=== PATIENT | female | born 1950 | race Caucasian/White ===

== ENCOUNTER 2018-09-18 14:15 | Emergency (ER) | payer MEDICARE, SELFPAY ==
[2018-09-18 14:27] VITALS: BP 166/84; PULSE 62; RESP 15; TEMP 36.2; O2SAT 98; BMI 27.9
--- NOTE | 2018-09-18 14:27 | DI.RAD.S_ITS ---
PROCEDURE: XR CHEST 1V INDICATIONS: chest pain TECHNIQUE: One view of the chest was acquired. COMPARISON: None. FINDINGS: Surgical changes and devices: Suture anchors noted in the right humeral head.. Lungs and pleura: No pleural effusions or pneumothorax. Lungs are clear. Mediastinum: Mediastinal contours appear normal. Heart size is normal. Bones and chest wall: No suspicious bony lesions. Overlying soft tissues appear unremarkable. IMPRESSION: No acute cardiopulmonary disease process. Dictated by: Bessy Marinelli MD, PhD on 09/18/2018 at 14:58 Approved by: Bessy Marinelli MD, PhD on 09/18/2018 at 14:58
[2018-09-18 14:57] LABS: Add Manual Diff / Slide Review NO; Basophils Absolute Auto 100 /uL (0-100); Basophils Percent Auto 0.9 % (0-2); Eosinophils Absolute Auto 100 /uL (0-450); Eosinophils Percent Auto 1.5 % (2-4); Hematocrit 43.7 % (36-46); Hemoglobin 14.8 g/dL (12.0-16.0); Lymphocytes Absolute Auto 2800 /uL (1100-4500); Lymphocytes Percent Auto 37.3 % (25-40); Mean Corpuscular HGB Conc 33.9 % (30-36); Mean Corpuscular Hemoglobin 30.4 PG (26-34); Mean Corpuscular Volume 89.8 fL (80-100); Monocytes Absolute Auto 500 /uL (0-900); Monocytes Percent Auto 6.8 % (3-14); Neutrophils Absolute Auto 3900 /uL (1500-7000); Neutrophils Percent Auto 53.5 % (50-75); Platelet Count 265 X10^3/uL (150-400); Red Blood Cell Count 4.87 X10^6/uL (4.0-5.2); Red Cell Distribution Width 14.2 % (11.6-14.8); White Blood Cell Count 7.4 X10^3/uL (4.5-11.0)
[2018-09-18 15:00] VITALS: BP 138/76; PULSE 88; RESP 27
[2018-09-18 15:01] LABS: INR 0.8 (0.9-1.3); Prothrombin Time 9.7 SECONDS (10.1-12.7)
[2018-09-18 15:02] LABS: PTT Partial Thromboplastin Tim 28 SECONDS (26.4-36.2)
[2018-09-18 15:05] LABS: Alanine Aminotransferase 75 IU/L (9-52); Albumin 4.8 g/dL (3.5-5.0); Albumin Globulin Ratio 1.7 (1.0-2.8); Alkaline Phosphatase 90 U/L (38-126); Aspartate Aminotransferase 56 IU/L (14-36); Bilirubin Total 1.1 mg/dL (0.2-1.3); Blood Urea Nitrogen 12 mg/dL (7-17); Calcium 9.6 mg/dL (8.4-10.2); Carbon Dioxide 27 mmol/L (22-32); Chloride 103 mmol/L (98-107); Creatine Kinase 67 U/L (30-135); Estimated Glomerular Filt Rate > 60.0 mL/min (>60); Globulin 2.9 g/dL (1.7-4.1); Glucose 91 mg/dL (80-110); HEMOLYSIS < 15 (0-50); Lipase 71 U/L (23-300); Potassium 3.9 mmol/L (3.4-5.1); Sodium 140 mmol/L (137-145); Total Protein 7.7 g/dL (6.3-8.2)
[2018-09-18 15:16] LABS: Troponin I < 0.012 ng/mL (0.01-0.034)
--- NOTE | 2018-09-18 15:18 | ED.CHESTPAIN ---
HPI - Chest Pain General Chief Complaint: Chest Pain Stated Complaint: CHEST PAIN, SHORT OF BREATH Time Seen by Provider: 09/18/18 14:50 Source: patient Mode of arrival: ambulatory Limitations: no limitations History of Present Illness HPI narrative: 68-year-old female, former smoker, otherwise largely healthy presents with some vague chest pain and generalized fatigue over the course of the week. She denies any ongoing symptoms. She denies provocation, palliation or radiation of her chest pain. She does state that when present is feels like a burning sensation when she breathes. She has had cough that is not productive of sputum or hemoptysis. She states that about a month ago she noticed pain, in the absence of injury in her left calf, she thought nothing of it. She proceeded to drive [place] country with her grandkids and returned about 1 week ago. Her symptoms have been present since. She has had some runny nose and sore throat as well some generalized aches and at 1 point a fever which was subjective. She denies nausea, vomiting or diarrhea MD complaint: chest pain Onset (ago): day(s) Duration: intermittent and improved Pain location: substernal Severity: mild Quality: other Pain radiation: none Relieving factors: nothing Exacerbating factors: inspiration Context: recent travel Treatments prior to arrival chest pain: none Related Data Home Medications Medication Instructions Recorded Confirmed calcium carbonate 650 mg PO #0 11/03/16 09/18/18 cholecalciferol (vitamin D3) 2,000 unit PO #0 11/03/16 09/18/18 [Vitamin D3] multivitamin [Multiple Vitamins] 1 tab PO QDAY #0 11/03/16 09/18/18 escitalopram oxalate 10 mg PO DAILY 09/18/18 09/18/18 Allergies Allergy/AdvReac Type Severity Reaction Status Date / Time amoxicillin [From AUGMENTIN] Allergy Unknown Verified 09/18/18 14:27 ciprofloxacin [CIPROFLOXACIN] Allergy Unknown Verified 09/18/18 14:27 clavulanic acid Allergy Unknown Verified 09/18/18 14:27 [From AUGMENTIN] codeine [CODEINE] Allergy Unknown Verified 09/18/18 14:27 Review of Systems Constitutional Denies chills, Denies fever(s), Denies lethargy and Denies weakness Eyes Denies change in vision, Denies eye discharge, Denies irritation and Denies loss of vision ENT Ears, Nose, Mouth, and Throat: Denies change in voice, Denies neck pain and Denies sore throat Cardiovascular Reports chest pain, Denies irregular heart rhythm, Denies lightheadedness, Denies palpitations, Denies dyspnea, Denies dyspnea on exertion and Denies orthopnea Respiratory Denies cough, Denies dyspnea, Denies dyspnea on exertion and Denies wheezing Gastrointestinal Gastrointestinal: Denies abdominal pain, Denies change in bowel habits, Denies diarrhea, Denies nausea and Denies vomiting Genitourinary Denies hematuria, Denies flank pain, Denies urinary incontinence and Denies urinary urgency Musculoskeletal Denies neck pain Integumentary/Breasts Denies pruritus, Denies erythema, Denies rash and Denies wounds Neurologic Denies confusion, Denies loss of vision and Denies weakness Psychiatric Denies anxiety, Denies confusion, Denies depression, Denies homicidal ideation and Denies suicidal ideation Endocrine Denies palpitations Hematologic/Lymphatic Denies easy bruising Allergic/Immunologic Denies wheezing [facility] Social History Smoking Status: Never smoker Exam Narrative Exam Narrative: GENERAL: This is a well-nourished, well-developed patient, in mild distress. HEAD: Atraumatic. Normocephalic. No temporal or scalp tenderness. EYES: Pupils equal round and reactive. Extraocular motions intact. No scleral icterus. No injection or drainage. ENT: Nose without bleeding, purulent drainage or septal hematoma. Throat without erythema, tonsillar hypertrophy or exudate. Uvula midline. Airway patent. NECK: Trachea midline. No JVD or lymphadenopathy. Supple, nontender, no meningeal signs. CARDIOVASCULAR: Regular rate and rhythm without murmurs, gallops, or rubs. RESPIRATORY: Clear to auscultation. Breath sounds equal bilaterally. No wheezes, rales, or rhonchi. GASTROINTESTINAL: Abdomen soft, non-tender, nondistended. No hepato-splenomegaly, or palpable masses. No guarding. EXTREMITIES: No clubbing, cyanosis, or edema. No joint tenderness, effusion, or edema noted. BACK: Nontender without deformity or crepitance. No flank tenderness. NEURO: AOx3. SKIN: No rash or erythema. Initial Vital Signs Initial Vital Signs: Vital Signs Temperature 97.1 F L 09/18/18 14:27 Pulse Rate 62 09/18/18 14:27 Respiratory Rate 15 09/18/18 14:27 Blood Pressure 166/84 H 09/18/18 14:27 Pulse Oximetry 98 09/18/18 14:27 Course Orders Ordered: ED Orders 09/18/18 14:27 XR chest 1V Stat EKG-12 Lead Stat 09/18/18 14:35 Complete Blood Count AUTO DIFF Stat Comprehensive Metabolic Panel Stat Lipase Stat Partial Thromboplastin Time Stat Prothrombin Time INR Stat Troponin & CK Cardiac Panel Stat 09/18/18 16:14 CT angio chest PE protocol Stat 09/18/18 17:20 Influenza A and B by PCR Rapid Stat Discontinued Medications Sodium Chloride (Normal Saline 0.9%) 1,000 mls @ 1,000 mls/hr IV BOLUS ONE Stop: 09/18/18 18:29 Last Infusion: 09/18/18 18:30 Dose: 1,000 mls/hr Admin: 09/18/18 17:31 Dose: 1,000 mls/hr Vital Signs - 8 hr 09/18/18 14:27 09/18/18 15:00 09/18/18 16:00 Temperature 97.1 F L Pulse Rate 62 88 67 Respiratory Rate 15 27 H 15 Blood Pressure 166/84 H Blood Pressure [Left Arm] 138/76 171/84 H Pulse Oximetry 98 98 09/18/18 17:16 Temperature Pulse Rate 58 L Respiratory Rate 15 Blood Pressure Blood Pressure [Left Arm] 122/70 Pulse Oximetry 98 MDM - Chest Pain Differential Diagnosis Likely pneumothorax, stable angina, unstable angina pectoris, atypical chest pain and st elevation myocardial infarction Medical Records Data Attestation: I reviewed the patient's medical records. Lab Data Attestation: I reviewed the patient's lab results. Result diagrams: 09/18/18 14:35 09/18/18 14:35 Lab Results 09/18/18 09/18/18 09/18/18 Range/Units 14:35 14:35 14:35 WBC 7.4 (4.5-11.0) X10^3/uL RBC 4.87 (4.0-5.2) X10^6/uL Hgb 14.8 (12.0-16.0) g/dL Hct 43.7 (36-46) % MCV 89.8 (80-100) fL MCH 30.4 (26-34) PG MCHC 33.9 (30-36) % RDW 14.2 (11.6-14.8) % Plt Count 265 (150-400) X10^3/uL Neut % (Auto) 53.5 (50-75) % Lymph % (Auto) 37.3 (25-40) % Dougherty % (Auto) 6.8 (3-14) % Eos % (Auto) 1.5 L (2-4) % Baso % (Auto) 0.9 (0-2) % Neut # (Auto) 3900 (4574-3619) /uL Lymph # (Auto) 2800 (6798-4403) /uL Dougherty # (Auto) 500 (0-900) /uL Eos # (Auto) 100 (0-450) /uL Baso # (Auto) 100 (0-100) /uL PT 9.7 L (10.1-12.7) SECONDS INR 0.8 L (0.9-1.3) APTT 28 (26.4-36.2) SECONDS D-Dimer (<230) ng/mL Sodium 140 (137-145) mmol/L Potassium 3.9 (3.4-5.1) mmol/L Chloride 103 (98-107) mmol/L Carbon Dioxide 27 (22-32) mmol/L BUN 12 (7-17) mg/dL Creatinine 0.80 (0.52-1.04) mg/dL Estimated GFR > 60.0 (>60) mL/min BUN/Creatinine Ratio 15.0 (6-22) Glucose 91 (80-110) mg/dL Calcium 9.6 (8.4-10.2) mg/dL Total Bilirubin 1.1 (0.2-1.3) mg/dL AST 56 H (14-36) IU/L ALT 75 H (9-52) IU/L Alkaline Phosphatase 90 (38-126) U/L Total Creatine Kinase 67 (30-135) U/L CK-MB (CK-2) TNP CK-MB (CK-2) Rel Index TNP Troponin I < 0.012 (0.01-0.034) ng/mL Total Protein 7.7 (6.3-8.2) g/dL Albumin 4.8 (3.5-5.0) g/dL Globulin 2.9 (1.7-4.1) g/dL Albumin/Globulin Ratio 1.7 (1.0-2.8) Lipase 71 (23-300) U/L Influenza A & B (PCR) (Negative) 09/18/18 09/18/18 Range/Units 17:20 Unknown WBC (4.5-11.0) X10^3/uL RBC (4.0-5.2) X10^6/uL Hgb (12.0-16.0) g/dL Hct (36-46) % MCV (80-100) fL MCH (26-34) PG MCHC (30-36) % RDW (11.6-14.8) % Plt Count (150-400) X10^3/uL Neut % (Auto) (50-75) % Lymph % (Auto) (25-40) % Dougherty % (Auto) (3-14) % Eos % (Auto) (2-4) % Baso % (Auto) (0-2) % Neut # (Auto) (0899-8055) /uL Lymph # (Auto) (8422-1367) /uL Dougherty # (Auto) (0-900) /uL Eos # (Auto) (0-450) /uL Baso # (Auto) (0-100) /uL PT (10.1-12.7) SECONDS INR (0.9-1.3) APTT (26.4-36.2) SECONDS D-Dimer 207 (<230) ng/mL Sodium (137-145) mmol/L Potassium (3.4-5.1) mmol/L Chloride (98-107) mmol/L Carbon Dioxide (22-32) mmol/L BUN (7-17) mg/dL Creatinine (0.52-1.04) mg/dL Estimated GFR (>60) mL/min BUN/Creatinine Ratio (6-22) Glucose (80-110) mg/dL Calcium (8.4-10.2) mg/dL Total Bilirubin (0.2-1.3) mg/dL AST (14-36) IU/L ALT (9-52) IU/L Alkaline Phosphatase (38-126) U/L Total Creatine Kinase (30-135) U/L CK-MB (CK-2) CK-MB (CK-2) Rel Index Troponin I (0.01-0.034) ng/mL Total Protein (6.3-8.2) g/dL Albumin (3.5-5.0) g/dL Globulin (1.7-4.1) g/dL Albumin/Globulin Ratio (1.0-2.8) Lipase (23-300) U/L Influenza A & B (PCR) Negative (Negative) Imaging Data CT scan - chest: Radiologist's impression: Patient: Giana Atkinson MR#: [id number] : 1950 Acct:[id number] Age/Sex: 68 / F Date of Service: 09/18/18 Loc: ED Accession Number: [id number] Procedure: CT angio chest PE protocol Ordering Provider: Abdirizak Lockwood D.O. PROCEDURE: CT ANGIO CHEST PE PROTOCOL INDICATIONS: CP, SOB, cough, travel, calf pain, hx smoker TECHNIQUE: After the administration of intravenous contrast, 2 mm thick sections acquired from the pulmonary apices to the posterior costophrenic angles. 3-dimensional maximum intensity projection (MIP) coronal and sagittal reformats were then acquired through the thorax. For radiation dose reduction, the following was used: automated exposure control, adjustment of mA and/or kV according to patient size. COMPARISON: None. FINDINGS: Image quality: Diagnostic sensitivity for pulmonary embolus is severely diminished secondary to poor contrast opacification of the pulmonary arteries. Pulmonary arteries: Pulmonary arteries are normal in size, and demonstrate no intraluminal filling defects to suggest central pulmonary embolism. Lungs and pleura: Atelectasis noted in the dependent portions of the lung bases. No pleural effusions or pneumothorax. Central and peripheral airways are patent. Mediastinum: Heart size is normal, without pericardial effusion. No mediastinal or hilar adenopathy. Thoracic aorta is normal in caliber and enhancement. Esophagus is normal in caliber, without hiatal hernia. Bones and chest wall: No suspicious bony lesions. Ribs and thoracic spine appear intact throughout. Spine degenerative disc disease and facet arthropathy. Thyroid gland is within normal limits. No axillary or supraclavicular adenopathy. Abdomen: Visualized upper abdominal solid organs appear normal in the early arterial phase of enhancement. IMPRESSION: 1. Diagnostic sensitivity of study for pulmonary embolus severely limited secondary to poor contrast opacification of pulmonary arteries. Pulmonary embolus cannot be excluded. 2. No aortic dissection. 3. Small hiatal hernia. Dictated by: Bessy Marinelli MD, PhD on 09/18/2018 at 16:47 Approved by: Bessy Marinelli MD, PhD on 09/18/2018 at 16:55 [facility] Narrative Medical decision making narrative: Multiple etiologies for patient's symptoms considered including: [Pulmonary embolism considered given leg pain in absence of injury, pleuritic-type chest pain, dry cough and recent travel. I initially skipped ordering a D-dimer as a new angiography was indicated. The study was limited due to poor contrast opacification hence my addition of D-dimer after the fact. This negative D-dimer in the setting of no hypotension, tachycardia, or hypoxia makes a clinically significant PE exceedingly unlikely. Cardiac ischemia considered but thought less likely given lack of ischemic findings on EKG and negative troponin. Pneumonia and flu considered but thought less likely given lack of findings. Most likely etiology for symptoms is a viral upper respiratory versus other diagnosis Patient's symptoms improved or duration of stay with above-stated therapies. Findings and discharge diagnosis discussed with patient/family followed by verbalization of understanding Return precautions discussed with patient/family whom verbalize understanding. Discharge Plan Departure Patient Disposition: Home Clinical Impression: Atypical chest pain Discharge Date/Time: 09/18/18 18:29 Interventions: ED Discharge Assessment Last Done: 09/18/18 18:29 Instructions: DI for Atypical Chest Pain Activity Restrictions/Additional Instructions: *You have been diagnosed with [ atypical chest pain ] *What to do: *Take medications as directed *Follow up with your primary care provider in 2-3 days, call for an appointment. Let them know you were seen in the Emergency Department and that we ask that you be seen in follow up *Return to ER if you should have any new, worsening or concerning symptoms Prescriptions: No Action multivitamin [Multiple Vitamins] 1 EACH tablet 1 tab PO QDAY Qty: 0 RF: 0 cholecalciferol (vitamin D3) [Vitamin D3] 2,000 UNIT capsule 2,000 unit PO Qty: 0 RF: 0 calcium carbonate 650 MG tablet 650 mg PO Qty: 0 RF: 0 escitalopram oxalate 10 mg tablet 10 mg PO DAILY RF: 0
[2018-09-18 16:00] VITALS: BP 171/84; PULSE 67; RESP 15; O2SAT 98
--- NOTE | 2018-09-18 16:14 | DI.CT.S_ITS ---
PROCEDURE: CT ANGIO CHEST PE PROTOCOL INDICATIONS: CP, SOB, cough, travel, calf pain, hx smoker TECHNIQUE: After the administration of intravenous contrast, 2 mm thick sections acquired from the pulmonary apices to the posterior costophrenic angles. 3-dimensional maximum intensity projection (MIP) coronal and sagittal reformats were then acquired through the thorax. For radiation dose reduction, the following was used: automated exposure control, adjustment of mA and/or kV according to patient size. COMPARISON: None. FINDINGS: Image quality: Diagnostic sensitivity for pulmonary embolus is severely diminished secondary to poor contrast opacification of the pulmonary arteries. Pulmonary arteries: Pulmonary arteries are normal in size, and demonstrate no intraluminal filling defects to suggest central pulmonary embolism. Lungs and pleura: Atelectasis noted in the dependent portions of the lung bases. No pleural effusions or pneumothorax. Central and peripheral airways are patent. Mediastinum: Heart size is normal, without pericardial effusion. No mediastinal or hilar adenopathy. Thoracic aorta is normal in caliber and enhancement. Esophagus is normal in caliber, without hiatal hernia. Bones and chest wall: No suspicious bony lesions. Ribs and thoracic spine appear intact throughout. Spine degenerative disc disease and facet arthropathy. Thyroid gland is within normal limits. No axillary or supraclavicular adenopathy. Abdomen: Visualized upper abdominal solid organs appear normal in the early arterial phase of enhancement. IMPRESSION: 1. Diagnostic sensitivity of study for pulmonary embolus severely limited secondary to poor contrast opacification of pulmonary arteries. Pulmonary embolus cannot be excluded. 2. No aortic dissection. 3. Small hiatal hernia. Dictated by: Bessy Marinelli MD, PhD on 09/18/2018 at 16:47 Approved by: Bessy Marinelli MD, PhD on 09/18/2018 at 16:55
[2018-09-18 17:11] LABS: D Dimer 207 ng/mL (<230)
[2018-09-18 17:16] VITALS: BP 122/70; PULSE 58; RESP 15; O2SAT 98
[2018-09-18] MEDS: SODIUM CHLORIDE 0.9% 1,000 ML 1000 ML IV (17:31)
[2018-09-18 17:40] LABS: Influenza A and B by PCR Rapid Negative (Negative)
--- NOTE | 2018-09-18 17:53 | ED_ITS ---
HPI - Chest Pain General Chief Complaint: Chest Pain Stated Complaint: CHEST PAIN, SHORT OF BREATH Time Seen by Provider: 09/18/18 14:50 Source: patient Mode of arrival: ambulatory Limitations: no limitations History of Present Illness HPI narrative: 68-year-old female, former smoker, otherwise largely healthy presents with some vague chest pain and generalized fatigue over the course of the week. She denies any ongoing symptoms. She denies provocation, palliation or radiation of her chest pain. She does state that when present is feels like a burning sensation when she breathes. She has had cough that is not productive of sputum or hemoptysis. She states that about a month ago she noticed pain, in the absence of injury in her left calf, she thought nothing of it. She proceeded to drive [place] country with her grandkids and returned about 1 week ago. Her symptoms have been present since. She has had some runny nose and sore throat as well some generalized aches and at 1 point a fever which was subjective. She denies nausea, vomiting or diarrhea MD complaint: chest pain Onset (ago): day(s) Duration: intermittent and improved Pain location: substernal Severity: mild Quality: other Pain radiation: none Relieving factors: nothing Exacerbating factors: inspiration Context: recent travel Treatments prior to arrival chest pain: none Related Data Home Medications Medication Instructions Recorded Confirmed calcium carbonate 650 mg PO #0 11/03/16 09/18/18 cholecalciferol (vitamin D3) 2,000 unit PO #0 11/03/16 09/18/18 [Vitamin D3] multivitamin [Multiple Vitamins] 1 tab PO QDAY #0 11/03/16 09/18/18 escitalopram oxalate 10 mg PO DAILY 09/18/18 09/18/18 Allergies Allergy/AdvReac Type Severity Reaction Status Date / Time amoxicillin [From AUGMENTIN] Allergy Unknown Verified 09/18/18 14:27 ciprofloxacin [CIPROFLOXACIN] Allergy Unknown Verified 09/18/18 14:27 clavulanic acid Allergy Unknown Verified 09/18/18 14:27 [From AUGMENTIN] codeine [CODEINE] Allergy Unknown Verified 09/18/18 14:27 Review of Systems Constitutional Denies chills, Denies fever(s), Denies lethargy and Denies weakness Eyes Denies change in vision, Denies eye discharge, Denies irritation and Denies loss of vision ENT Ears, Nose, Mouth, and Throat: Denies change in voice, Denies neck pain and Denies sore throat Cardiovascular Reports chest pain, Denies irregular heart rhythm, Denies lightheadedness, Denies palpitations, Denies dyspnea, Denies dyspnea on exertion and Denies orthopnea Respiratory Denies cough, Denies dyspnea, Denies dyspnea on exertion and Denies wheezing Gastrointestinal Gastrointestinal: Denies abdominal pain, Denies change in bowel habits, Denies diarrhea, Denies nausea and Denies vomiting Genitourinary Denies hematuria, Denies flank pain, Denies urinary incontinence and Denies urinary urgency Musculoskeletal Denies neck pain Integumentary/Breasts Denies pruritus, Denies erythema, Denies rash and Denies wounds Neurologic Denies confusion, Denies loss of vision and Denies weakness Psychiatric Denies anxiety, Denies confusion, Denies depression, Denies homicidal ideation and Denies suicidal ideation Endocrine Denies palpitations Hematologic/Lymphatic Denies easy bruising Allergic/Immunologic Denies wheezing [facility] Social History Smoking Status: Never smoker Exam Narrative Exam Narrative: GENERAL: This is a well-nourished, well-developed patient, in mild distress. HEAD: Atraumatic. Normocephalic. No temporal or scalp tenderness. EYES: Pupils equal round and reactive. Extraocular motions intact. No scleral icterus. No injection or drainage. ENT: Nose without bleeding, purulent drainage or septal hematoma. Throat without erythema, tonsillar hypertrophy or exudate. Uvula midline. Airway patent. NECK: Trachea midline. No JVD or lymphadenopathy. Supple, nontender, no meningeal signs. CARDIOVASCULAR: Regular rate and rhythm without murmurs, gallops, or rubs. RESPIRATORY: Clear to auscultation. Breath sounds equal bilaterally. No wheezes , rales, or rhonchi. GASTROINTESTINAL: Abdomen soft, non-tender, nondistended. No hepato-splenomegaly , or palpable masses. No guarding. EXTREMITIES: No clubbing, cyanosis, or edema. No joint tenderness, effusion, or edema noted. BACK: Nontender without deformity or crepitance. No flank tenderness. NEURO: AOx3. SKIN: No rash or erythema. Initial Vital Signs Initial Vital Signs: Vital Signs Temperature 97.1 F L 09/18/18 14:27 Pulse Rate 62 09/18/18 14:27 Respiratory Rate 15 09/18/18 14:27 Blood Pressure 166/84 H 09/18/18 14:27 Pulse Oximetry 98 09/18/18 14:27 Course Orders Ordered: ED Orders 09/18/18 14:27 XR chest 1V Stat EKG-12 Lead Stat 09/18/18 14:35 Complete Blood Count AUTO DIFF Stat Comprehensive Metabolic Panel Stat Lipase Stat Partial Thromboplastin Time Stat Prothrombin Time INR Stat Troponin & CK Cardiac Panel Stat 09/18/18 16:14 CT angio chest PE protocol Stat 09/18/18 17:20 Influenza A and B by PCR Rapid Stat Discontinued Medications Sodium Chloride (Normal Saline 0.9%) 1,000 mls @ 1,000 mls/hr IV BOLUS ONE Stop: 09/18/18 18:29 Last Infusion: 09/18/18 18:30 Dose: 1,000 mls/hr Admin: 09/18/18 17:31 Dose: 1,000 mls/hr Vital Signs - 8 hr 09/18/18 14:27 09/18/18 15:00 09/18/18 16:00 Temperature 97.1 F L Pulse Rate 62 88 67 Respiratory Rate 15 27 H 15 Blood Pressure 166/84 H Blood Pressure [Left Arm] 138/76 171/84 H Pulse Oximetry 98 98 09/18/18 17:16 Temperature Pulse Rate 58 L Respiratory Rate 15 Blood Pressure Blood Pressure [Left Arm] 122/70 Pulse Oximetry 98 MDM - Chest Pain Differential Diagnosis Likely pneumothorax, stable angina, unstable angina pectoris, atypical chest pain and st elevation myocardial infarction Medical Records Data Attestation: I reviewed the patient's medical records. Lab Data Attestation: I reviewed the patient's lab results. Result diagrams: 09/18/18 14:35 09/18/18 14:35 Lab Results 09/18/18 09/18/18 09/18/18 Range/Units 14:35 14:35 14:35 WBC 7.4 (4.5-11.0) X10^3/uL RBC 4.87 (4.0-5.2) X10^6/uL Hgb 14.8 (12.0-16.0) g/dL Hct 43.7 (36-46) % MCV 89.8 (80-100) fL MCH 30.4 (26-34) PG MCHC 33.9 (30-36) % RDW 14.2 (11.6-14.8) % Plt Count 265 (150-400) X10^3/uL Neut % (Auto) 53.5 (50-75) % Lymph % (Auto) 37.3 (25-40) % [place] % (Auto) 6.8 (3-14) % Eos % (Auto) 1.5 L (2-4) % Baso % (Auto) 0.9 (0-2) % Neut # (Auto) 3900 (4639-1495) /uL Lymph # (Auto) 2800 (7563-9869) /uL [place] # (Auto) 500 (0-900) /uL Eos # (Auto) 100 (0-450) /uL Baso # (Auto) 100 (0-100) /uL PT 9.7 L (10.1-12.7) SECONDS INR 0.8 L (0.9-1.3) APTT 28 (26.4-36.2) SECONDS D-Dimer (<230) ng/mL Sodium 140 (137-145) mmol/L Potassium 3.9 (3.4-5.1) mmol/L Chloride 103 (98-107) mmol/L Carbon Dioxide 27 (22-32) mmol/L BUN 12 (7-17) mg/dL Creatinine 0.80 (0.52-1.04) mg/dL Estimated GFR > 60.0 (>60) mL/min BUN/Creatinine Ratio 15.0 (6-22) Glucose 91 (80-110) mg/dL Calcium 9.6 (8.4-10.2) mg/dL Total Bilirubin 1.1 (0.2-1.3) mg/dL AST 56 H (14-36) IU/L ALT 75 H (9-52) IU/L Alkaline Phosphatase 90 (38-126) U/L Total Creatine Kinase 67 (30-135) U/L CK-MB (CK-2) TNP CK-MB (CK-2) Rel Index TNP Troponin I < 0.012 (0.01-0.034) ng/mL Total Protein 7.7 (6.3-8.2) g/dL Albumin 4.8 (3.5-5.0) g/dL Globulin 2.9 (1.7-4.1) g/dL Albumin/Globulin Ratio 1.7 (1.0-2.8) Lipase 71 (23-300) U/L Influenza A & B (PCR) (Negative) 09/18/18 09/18/18 Range/Units 17:20 Unknown WBC (4.5-11.0) X10^3/uL RBC (4.0-5.2) X10^6/uL Hgb (12.0-16.0) g/dL Hct (36-46) % MCV (80-100) fL MCH (26-34) PG MCHC (30-36) % RDW (11.6-14.8) % Plt Count (150-400) X10^3/uL Neut % (Auto) (50-75) % Lymph % (Auto) (25-40) % [place] % (Auto) (3-14) % Eos % (Auto) (2-4) % Baso % (Auto) (0-2) % Neut # (Auto) (1536-4536) /uL Lymph # (Auto) (9679-9460) /uL [place] # (Auto) (0-900) /uL Eos # (Auto) (0-450) /uL Baso # (Auto) (0-100) /uL PT (10.1-12.7) SECONDS INR (0.9-1.3) APTT (26.4-36.2) SECONDS D-Dimer 207 (<230) ng/mL Sodium (137-145) mmol/L Potassium (3.4-5.1) mmol/L Chloride (98-107) mmol/L Carbon Dioxide (22-32) mmol/L BUN (7-17) mg/dL Creatinine (0.52-1.04) mg/dL Estimated GFR (>60) mL/min BUN/Creatinine Ratio (6-22) Glucose (80-110) mg/dL Calcium (8.4-10.2) mg/dL Total Bilirubin (0.2-1.3) mg/dL AST (14-36) IU/L ALT (9-52) IU/L Alkaline Phosphatase (38-126) U/L Total Creatine Kinase (30-135) U/L CK-MB (CK-2) CK-MB (CK-2) Rel Index Troponin I (0.01-0.034) ng/mL Total Protein (6.3-8.2) g/dL Albumin (3.5-5.0) g/dL Globulin (1.7-4.1) g/dL Albumin/Globulin Ratio (1.0-2.8) Lipase (23-300) U/L Influenza A & B (PCR) Negative (Negative) Imaging Data CT scan - chest: Radiologist's impression: Patient: Giana Atkinson MR#: [id number] : 1950 Acct:[id number] Age/Sex: 68 / F Date of Service: 09/18/18 Loc: ED Accession Number: [id number] Procedure: CT angio chest PE protocol Ordering Provider: Abdirizak Lockwood D.O. PROCEDURE: CT ANGIO CHEST PE PROTOCOL INDICATIONS: CP, SOB, cough, travel, calf pain, hx smoker TECHNIQUE: After the administration of intravenous contrast, 2 mm thick sections acquired from the pulmonary apices to the posterior costophrenic angles. 3-dimensional maximum intensity projection (MIP) coronal and sagittal reformats were then acquired through the thorax. For radiation dose reduction, the following was used: automated exposure control, adjustment of mA and/or kV according to patient size. COMPARISON: None. FINDINGS: Image quality: Diagnostic sensitivity for pulmonary embolus is severely diminished secondary to poor contrast opacification of the pulmonary arteries. Pulmonary arteries: Pulmonary arteries are normal in size, and demonstrate no intraluminal filling defects to suggest central pulmonary embolism. Lungs and pleura: Atelectasis noted in the dependent portions of the lung bases. No pleural effusions or pneumothorax. Central and peripheral airways are patent. Mediastinum: Heart size is normal, without pericardial effusion. No mediastinal or hilar adenopathy. Thoracic aorta is normal in caliber and enhancement. Esophagus is normal in caliber, without hiatal hernia. Bones and chest wall: No suspicious bony lesions. Ribs and thoracic spine appear intact throughout. Spine degenerative disc disease and facet arthropathy. Thyroid gland is within normal limits. No axillary or supraclavicular adenopathy. Abdomen: Visualized upper abdominal solid organs appear normal in the early arterial phase of enhancement. IMPRESSION: 1. Diagnostic sensitivity of study for pulmonary embolus severely limited secondary to poor contrast opacification of pulmonary arteries. Pulmonary embolus cannot be excluded. 2. No aortic dissection. 3. Small hiatal hernia. Dictated by: Bessy Marinelli MD, PhD on 09/18/2018 at 16:47 Approved by: Bessy Marinelli MD, PhD on 09/18/2018 at 16:55 [facility] Narrative Medical decision making narrative: Multiple etiologies for patient's symptoms considered including: [Pulmonary embolism considered given leg pain in absence of injury, pleuritic-type chest pain, dry cough and recent travel. I initially skipped ordering a D-dimer as a new angiography was indicated. The study was limited due to poor contrast opacification hence my addition of D-dimer after the fact. This negative D-dimer in the setting of no hypotension, tachycardia, or hypoxia makes a clinically significant PE exceedingly unlikely. Cardiac ischemia considered but thought less likely given lack of ischemic findings on EKG and negative troponin. Pneumonia and flu considered but thought less likely given lack of findings. Most likely etiology for symptoms is a viral upper respiratory versus other diagnosis Patient's symptoms improved or duration of stay with above-stated therapies. Findings and discharge diagnosis discussed with patient/family followed by verbalization of understanding Return precautions discussed with patient/family whom verbalize understanding. Discharge Plan Departure Patient Disposition: Home Clinical Impression: Atypical chest pain Discharge Date/Time: 09/18/18 18:29 Interventions: ED Discharge Assessment Last Done: 09/18/18 18:29 Instructions: DI for Atypical Chest Pain Activity Restrictions/Additional Instructions: *You have been diagnosed with [ atypical chest pain ] *What to do: *Take medications as directed *Follow up with your primary care provider in 2-3 days, call for an appointment. Let them know you were seen in the Emergency Department and that we ask that you be seen in follow up *Return to ER if you should have any new, worsening or concerning symptoms Prescriptions: No Action multivitamin [Multiple Vitamins] 1 EACH tablet 1 tab PO QDAY Qty: 0 RF: 0 cholecalciferol (vitamin D3) [Vitamin D3] 2,000 UNIT capsule 2,000 unit PO Qty: 0 RF: 0 calcium carbonate 650 MG tablet 650 mg PO Qty: 0 RF: 0 escitalopram oxalate 10 mg tablet 10 mg PO DAILY RF: 0
== END 2018-09-18 18:29 | disposition home or self-care (01) ==
PROVIDERS: Emergency Provider Emergency Medicine
DX: R07.89 Other chest pain (principal)
CPT/HCPCS: 36591; 71045; 71275; 80053; 82550; 83690; 84484; 85025; 85379; 85610; 85730; 87400; 93005; 93010; 96360; 99283; 99285

== ENCOUNTER → 2018-12-23 13:09 | Outpatient (CLI) | payer MEDICARE, SELFPAY ==
--- NOTE | 2018-12-23 13:51 | DI.CT.S_ITS ---
PROCEDURE: CT ABDOMEN PELVIS W CON INDICATIONS: left lower quad abdominal pain TECHNIQUE: After the administration of intravenous contrast, 5 mm thick sections acquired from the diaphragm to the symphysis. 5 mm coronal and sagittal reformats were acquired. For radiation dose reduction, the following was used: automated exposure control, adjustment of mA and/or kV according to patient size. COMPARISON: [facility], CT, CT ANGIO CHEST PE PROTOCOL, 09/18/2018, 16:14. FINDINGS: Image quality: Excellent. ABDOMEN: Lung bases: There is a soft tissue density in the right lung base at the azygoesophageal recess, which is partially visualized. Heart size is normal. There is a small to moderate-sized hiatal hernia. Solid organs: There is diffuse hepatic fatty infiltration. Liver is normal in size and enhancement. Gallbladder is surgically absent. Biliary system is non dilated. Pancreas enhances normally. Spleen is normal in size and enhancement. No adrenal nodules. Kidneys demonstrate normal size and enhancement, without hydronephrosis. Peritoneum and bowel: Bowel loops demonstrate normal wall thickness and caliber. There are numerous colonic diverticula. There is mild focal thickening in sigmoid colon and mild pericolonic stranding, consistent with mild diverticulitis. There is no evidence for diverticular perforation. No fluid collection to suggest diverticular abscess. No free fluid or air. Nodes and vessels: No retroperitoneal or mesenteric adenopathy by size criteria. Persistent slight prominence left external iliac lymph node measuring 0.9 x 1.2 cm soft tissue anterior to the left psoas muscle (series 2 image 49). Aorta and inferior vena cava are normal in size. Miscellaneous: No ventral hernias. PELVIS: Genitourinary: Bladder wall thickness is normal. Uterus is absent. Miscellaneous: No inguinal adenopathy. Small fat containing inguinal hernias are noted. Bones: There are a couple of sclerotic foci in the right iliac bone. No vertebral body compression fractures. There is grade 1 anterolisthesis of L5 on S1. Degenerative disc and facet disease in lumbar spine. IMPRESSION: 1. Diverticulosis and acute sigmoid diverticulitis. There is no evidence for diverticular perforation or abscess. 2. Hepatic steatosis. 3. Small to moderate sized hiatal hernia. 4. A 0.9 x 1.2 cm soft tissue nodule anterior to the left psoas muscle most likely a borderline enlarged lymph node. 5. Partially visualized a one point centimeter soft tissue density in the right lung base at the azygoesophageal recess, which was not present on o1. A non-emergent followup chest CT is suggested for followup evaluation. 6. A couple of sclerotic foci in the right iliac bone. They are most likely bone islands in a patient with no personal history of cancer. If the patient does have history of cancer, metastatic disease is on the differential diagnosis. The result was discussed with Brittany Eason. Dictated by: Inocencia Singh M.D. on 12/23/2018 at 14:42 Approved by: Inocencia Singh M.D. on 12/23/2018 at 17:37
[2018-12-23 14:12] LABS: Add Manual Diff / Slide Review NO; Basophils Absolute Auto 100 /uL (0-100); Basophils Percent Auto 0.9 % (0-2); Eosinophils Absolute Auto 100 /uL (0-450); Eosinophils Percent Auto 1.3 % (2-4); Hematocrit 42.3 % (36-46); Hemoglobin 14.3 g/dL (12.0-16.0); Lymphocytes Absolute Auto 2400 /uL (1100-4500); Lymphocytes Percent Auto 37.4 % (25-40); Mean Corpuscular HGB Conc 33.9 % (30-36); Mean Corpuscular Hemoglobin 30.7 PG (26-34); Mean Corpuscular Volume 90.5 fL (80-100); Monocytes Absolute Auto 500 /uL (0-900); Neutrophils Absolute Auto 3300 /uL (1500-7000); Neutrophils Percent Auto 52.4 % (50-75); Platelet Count 278 X10^3/uL (150-400); Red Blood Cell Count 4.67 X10^6/uL (4.0-5.2); Red Cell Distribution Width 14.3 % (11.6-14.8); White Blood Cell Count 6.4 X10^3/uL (4.5-11.0)
[2018-12-23 14:41] LABS: Alanine Aminotransferase 41 IU/L (9-52); Albumin 4.4 g/dL (3.5-5.0); Albumin Globulin Ratio 1.5 (1.0-2.8); Alkaline Phosphatase 136 U/L (38-126); Aspartate Aminotransferase 33 IU/L (14-36); BUN Creatinine Ratio 12.2 (6-22); Bilirubin Total 0.7 mg/dL (0.2-1.3); Blood Urea Nitrogen 11 mg/dL (7-17); Calcium 9.4 mg/dL (8.4-10.2); Carbon Dioxide 25 mmol/L (22-32); Chloride 102 mmol/L (98-107); Estimated Glomerular Filt Rate > 60.0 mL/min (>60); Glucose 101 mg/dL (80-110); HEMOLYSIS < 15 (0-50); Potassium 3.9 mmol/L (3.4-5.1); Sodium 139 mmol/L (137-145); Total Protein 7.4 g/dL (6.3-8.2)
== END ==
PROVIDERS: Visit Provider Physician Assistant
DX: R10.32 Left lower quadrant pain (principal); R31.9 Hematuria, unspecified; K57.32 Diverticulitis of large intestine without perforation or abscess without bleeding; K76.0 Fatty (change of) liver, not elsewhere classified; K44.9 Diaphragmatic hernia without obstruction or gangrene; R91.1 Solitary pulmonary nodule; R22.42 Localized swelling, mass and lump, left lower limb; Z90.49 Acquired absence of other specified parts of digestive tract
CPT/HCPCS: 36415; 74177; 80053; 85025; Q9967

== ENCOUNTER → 2020-11-17 16:50 | Outpatient (CLI) | payer MEDICARE, BC, SELFPAY ==
--- NOTE | 2020-11-17 17:16 | DI.RAD.S_ITS ---
PROCEDURE: XR LUMBAR SPINE MIN 4V INDICATIONS: back pain TECHNIQUE: 5 views of the lumbar spine were acquired, including bilateral oblique views. COMPARISON: None. FINDINGS: Bones: 5 nonrib-bearing vertebrae are present. There is a mild rightward curvature of the lumbar spine centered at L4-5. There is grade 2 anterolisthesis of L4 on 5 measuring up to 0.9 cm. No vertebral body compression fractures. No suspicious bony lesions. There is multilevel disc space narrowing throughout the lumbar spine including moderate narrowing at L5-S1 with mild endplate sclerosis and osteophytosis. Moderate facet arthropathy is demonstrated at L4-5 and L5-S1. Soft tissues: Overlying bowel gas pattern is normal. No suspicious soft tissue calcifications. Oblique images: No pars defects. IMPRESSION: 1. Grade 2 anterolisthesis at L4-5 without definite pars defect. 2. Multilevel degenerative disc disease including moderate degeneration at L5-S1. Moderate facet arthropathy also demonstrated in the lower lumbar spine. Dictated by: Lucius Dixon M.D. on 11/17/2020 at 17:43 Approved by: Lucius Dixon M.D. on 11/17/2020 at 17:45
== END ==
PROVIDERS: Visit Provider Physician Assistant
DX: M54.9 Dorsalgia, unspecified (principal); M54.5 Low back pain
CPT/HCPCS: 72110; 87086

== ENCOUNTER → 2021-05-24 15:10 | Outpatient (CLI) | payer MEDICARE, BC, SELFPAY | PROVIDERS: Visit Provider Physician Assistant | DX: R30.9 Painful micturition, unspecified (principal) | CPT/HCPCS: 87077; 87086; 87186 ==

== ENCOUNTER → 2021-10-13 12:56 | Outpatient (CLI) | payer MEDICARE, BC, SELFPAY | PROVIDERS: Visit Provider Nurse Practitioner Family | DX: N34.3 Urethral syndrome, unspecified (principal); N89.8 Other specified noninflammatory disorders of vagina | CPT/HCPCS: 87077; 87086; 87210 ==

== ENCOUNTER → 2021-10-19 13:01 | Outpatient (CLI) | payer MEDICARE, BC, SELFPAY ==
[2021-10-19 14:43] LABS: COVID19 -Nasal RAPID Negative (Negative)
== END ==
PROVIDERS: Visit Provider Nurse Practitioner Family
DX: R10.2 Pelvic and perineal pain (principal); R30.0 Dysuria; Z20.822 Contact with and (suspected) exposure to COVID-19
CPT/HCPCS: 87086; 87210; 87635

== ENCOUNTER → 2022-03-21 15:00 | Outpatient (CLI) | payer MEDICARE, BC, SELFPAY ==
[2022-03-21 15:28] LABS: COVID19 -Nasal RAPID Negative (Negative)
== END ==
PROVIDERS: Visit Provider Physician Assistant
DX: Z20.822 Contact with and (suspected) exposure to COVID-19 (principal)
CPT/HCPCS: 87635

== ENCOUNTER → 2022-06-25 13:18 | Outpatient (CLI) | payer MEDICARE, BC, SELFPAY | PROVIDERS: PCP Family Medicine; Visit Provider Nurse Practitioner Family | DX: R30.0 Dysuria (principal); N89.8 Other specified noninflammatory disorders of vagina | CPT/HCPCS: 87086; 87210 ==

== ENCOUNTER → 2022-06-26 11:53 | Outpatient (CLI) | payer MEDICARE, BC, SELFPAY ==
[2022-06-26 15:25] LABS: Urine N gonorrhoeae NOT DETECTED
[2022-06-26 15:42] LABS: Urine Chlamydia NOT DETECTED
== END ==
PROVIDERS: Nurse Practitioner Family; PCP Family Medicine; Referring Provider Family Medicine; Visit Provider Family Medicine
DX: N94.9 Unspecified condition associated with female genital organs and menstrual cycle (principal)
CPT/HCPCS: 87491; 87591

== ENCOUNTER → 2022-06-29 13:22 | Outpatient (CLI) | payer MEDICARE, BC, SELFPAY | PROVIDERS: PCP Family Medicine; Visit Provider Registered Nurse | DX: M54.59 Other low back pain (principal) | CPT/HCPCS: 87077; 87086; 87186 ==

== ENCOUNTER → 2022-08-17 13:37 | Outpatient (CLI) | payer MEDICARE, BC, SELFPAY ==
[2022-08-17 16:06] LABS: Influenza A - CEPHEID Flu A NEGATIVE (NEGATIVE); Influenza B - CEPHEID Flu B NEGATIVE (NEGATIVE); Respiratory Syncytial Virus Negative (Negative)
[2022-08-17 16:08] LABS: COVID-19 CEPHEID 4-PLEX PCR Negative (Negative)
== END ==
PROVIDERS: PCP Family Medicine; Visit Provider Nurse Practitioner Family
DX: J06.9 Acute upper respiratory infection, unspecified (principal); Z20.822 Contact with and (suspected) exposure to COVID-19
CPT/HCPCS: 0241U

== ENCOUNTER → 2024-06-29 10:22 | Outpatient (CLI) | payer MEDICARE, BC, SELFPAY | PROVIDERS: PCP Family Medicine; Visit Provider Physician Assistant Medical | DX: R30.0 Dysuria (principal); N30.01 Acute cystitis with hematuria | CPT/HCPCS: 87077; 87086; 87186 ==

== ENCOUNTER → 2024-08-07 10:37 | Outpatient (CLI) | payer MEDICARE, BC, SELFPAY | PROVIDERS: PCP Family Medicine; Visit Provider Nurse Practitioner Family | DX: R82.90 Unspecified abnormal findings in urine (principal) | CPT/HCPCS: 87077; 87086; 87186 ==

== ENCOUNTER → 2024-10-02 12:15 | Outpatient (CLI) | payer MEDICARE, BC, SELFPAY ==
--- NOTE | 2024-10-02 12:41 | DI.RAD.S_ITS ---
PROCEDURE: XR CHEST 2V INDICATIONS: cough TECHNIQUE: 2 views of the chest were acquired. COMPARISON: [facility], CR, XR CHEST 1V, 09/18/2018, 14:46. FINDINGS: Surgical changes and devices: None. Lungs and pleura: Lungs are clear. No pleural effusions or pneumothorax. Peribronchial cuffing. Mediastinum: Mediastinal contours are normal. Heart size is normal. Bones and chest wall: No suspicious bony abnormalities. Soft tissues appear unremarkable. IMPRESSION: Peribronchial cuffing, typically indicating infectious or inflammatory bronchitis. Dictated by: Neto Camacho M.D. on 10/02/2024 at 16:51 Approved by: Neto Camacho M.D. on 10/02/2024 at 16:52
== END ==
PROVIDERS: PCP Family Medicine; Referring Provider Nurse Practitioner Family; Visit Provider Nurse Practitioner Family
DX: R05.9 Cough, unspecified (principal)
CPT/HCPCS: 71046

== ENCOUNTER → 2024-12-23 15:48 | Outpatient (CLI) | payer MEDICARE, BC, SELFPAY ==
--- NOTE | 2024-12-23 15:50 | DI.RAD.S_ITS ---
PROCEDURE: XR HIP W PEL IF DONE ADELIA MIN 4V INDICATIONS: Fall 4 wks ago, L hip pain - OA L hip(?) TECHNIQUE: AP pelvis with lateral view(s) of the both hip(s). COMPARISON: None. FINDINGS: Bones: No fractures or dislocations. Pelvic ring appears intact. No suspicious bony lesions. Mild bilateral hip DJD. Mild degenerative changes at the pubic symphysis. Soft tissues: The visualized bowel gas pattern is normal. No suspicious soft tissue calcifications. IMPRESSION: Mild bilateral hip DJD. Dictated by: Leonard Rollins M.D. on 12/24/2024 at 12:44 Approved by: Leonard Rollins M.D. on 12/24/2024 at 12:48
== END ==
PROVIDERS: PCP Family Medicine; Referring Provider Physician Assistant; Visit Provider Physician Assistant
DX: M25.552 Pain in left hip (principal); M16.0 Bilateral primary osteoarthritis of hip
CPT/HCPCS: 73522

== ENCOUNTER 2025-08-09 11:35 | Emergency (ER) | payer MEDICARE, OTHER, SELFPAY ==
[2025-08-09 11:59] VITALS: BP 136/62; PULSE 78; RESP 18; TEMP 36.6; O2SAT 99
--- NOTE | 2025-08-09 12:16 | DI.US.S_ITS ---
PROCEDURE: US PERIPH VENOUS UP EXTREM LT INDICATIONS: Arm pain, bruising, non traumatic TECHNIQUE: Real-time imaging, as well as color and pulse Doppler interrogation, was performed of the upper extremity deep veins from the inferior neck to the antecubital fossa. COMPARISON: None. FINDINGS: The internal jugular vein, visualized portions of the subclavian vein, axillary, and brachial veins are free of intraluminal thrombus. Where physically possible, the veins are normally compressible. Color and pulse Doppler demonstrate normal intraluminal flow, with expected phasicity and pulsatility. Additional scanning of the cephalic and basilic veins of the superficial system demonstrates normal compressibility, without thrombus. IMPRESSION: No findings of upper extremity deep venous thrombosis can be seen. Dictated by: Luke Leal M.D. on 08/09/2025 at 13:03 Approved by: Luke Leal M.D. on 08/09/2025 at 13:03
[2025-08-09 14:48] LABS: Add Manual Diff / Slide Review NO; Hematocrit 41.8 % (36-46); Hemoglobin 14.1 g/dL (12.0-16.0); Lymphocytes Absolute Auto 2000 /uL (1100-4500); Mean Corpuscular HGB Conc 33.8 % (30-36); Mean Corpuscular Hemoglobin 30.4 PG (26-34); Mean Corpuscular Volume 89.8 fL (80-100); Platelet Count 231 X10^3/uL (150-400)
[2025-08-09 14:56] LABS: INR 0.9 (0.9-1.3); Prothrombin Time 10.2 SECONDS (9.4-12.5)
[2025-08-09 14:59] LABS: PTT Partial Thromboplastin Tim 29 SECONDS (25.1-36.5)
[2025-08-09 15:07] LABS: Alanine Aminotransferase 17 IU/L (<35); Albumin 4.4 g/dL (3.5-5.0); Albumin Globulin Ratio 1.6 (1.0-2.8); Alkaline Phosphatase 66 U/L (38-126); Blood Urea Nitrogen 17 mg/dL (7-17); Calcium 9.7 mg/dL (8.4-10.2); Carbon Dioxide 27 mmol/L (22-32); Chloride 106 mmol/L (98-107); Estimated Glomerular Filt Rate > 60 mL/min (>60); Globulin 2.8 g/dL (1.7-4.1); Glucose 97 mg/dL (70-99); HEMOLYSIS < 15 (0-50); Potassium 4.1 mmol/L (3.4-5.1); Sodium 139 mmol/L (137-145); Total Protein 7.2 g/dL (6.3-8.2)
[2025-08-09 15:52] VITALS: BP 154/74; PULSE 63; RESP 16; O2SAT 97
--- NOTE | 2025-08-10 17:45 | ED.SKABFB ---
HPI - Skin/Abscess/Foreign Bdy General Chief complaint: Skin/Abscess/Foreign Body Stated complaint: Something burst in left arm, 2 days Time Seen by Provider: 08/09/25 12:03 Source: patient Mode of arrival: Family Vehicle History of Present Illness HPI narrative: 75-year-old female presents to the ED with spontaneous, atraumatic bruising of the left arm. Patient states that she was reading for 4 hours holding her phone, when she felt a pop in her in her forearm, followed by some bruising and pain. Patient notes the same kind of bruising in the inner, upper left arm as well. No numbness, tingling, weakness. Patient is not on blood thinners. No chest pain, shortness of breath. Related Data Home Medications ?Medication ?Instructions ?Recorded ?Confirmed cholecalciferol (vitamin D3) 50 2,000 unit PO ##0 11/03/16 04/29/25 mcg (2,000 unit) capsule (Vitamin D3) multivitamin (Multiple Vitamins 1 tab PO QDAY ##0 11/03/16 04/29/25 tablet) Cranberry Supplement PO 08/07/24 04/29/25 Vitamin C PO 08/07/24 04/29/25 Saccharomyces boulardii [Daily PO 10/27/24 04/29/25 Probiotic (S. boulardii)] biotin 5,000 mcg chewable tablet mcg PO 10/27/24 04/29/25 lutein PO 10/27/24 04/29/25 methylsulfonylmethane 1,000 mg 1,000 mg PO BID 10/27/24 04/29/25 capsule (MSM) Previous Rx's ?Medication ?Instructions ?Recorded estradiol 0.01% (0.1 mg/gram) 1 g vaginal 2XW PRN vulvovaginal 10/27/24 vaginal cream irritation #42.5 grams phenazopyridine 200 mg tablet 200 mg PO TID 6 doses #6 tabs 04/29/25 (Pyridium) Allergies Allergy/AdvReac Type Severity Reaction Status Date / Time amoxicillin (From AUGMENTIN) Allergy Severe Swelling Verified 08/09/25 11:58 of Lip/Tongue/Throat clavulanic acid (From Allergy Severe Swelling Verified 08/09/25 11:58 AUGMENTIN) of Lip/Tongue/Throat ciprofloxacin (CIPROFLOXACIN) Allergy Intermediate Muscle Pain Verified 08/09/25 11:58 codeine (CODEINE) Allergy Intermediate ITCHING Verified 08/09/25 11:58 Review of Systems Constitutional Constitutional: Denies chills, Denies fatigue, Denies fever(s), Denies frequent falls, Denies lethargy and Denies weakness Eyes Eyes: Denies change in vision, Denies eye discharge, Denies irritation and Denies loss of vision ENT Ears, Nose, Mouth, and Throat: Denies change in voice, Denies dizziness, Denies neck pain, Denies sore throat and Denies throat swelling Cardiovascular Cardiovascular: Denies chest pain, Denies irregular heart rhythm, Denies lightheadedness, Denies palpitations, Denies dyspnea, Denies dyspnea on exertion and Denies orthopnea Respiratory Respiratory: Denies cough, Denies dyspnea, Denies dyspnea on exertion and Denies wheezing Gastrointestinal Gastrointestinal: Denies abdominal pain, Denies change in bowel habits, Denies diarrhea, Denies nausea and Denies vomiting Musculoskeletal Musculoskeletal: Denies neck pain and Denies numbness Integumentary/Breasts Skin/Breast: Denies pruritus, Denies erythema, Denies rash and Denies wounds Comments: Bruising, pain on left inner forearm, left inner upper arm Neurologic Neurologic: Denies behavioral changes, Denies confusion, Denies dizziness, Denies frequent falls, Denies loss of vision, Denies numbness and Denies weakness Psychiatric Psychiatric: Denies anxiety, Denies behavioral changes, Denies confusion, Denies depression, Denies homicidal ideation and Denies suicidal ideation Endocrine Endocrine: Denies fatigue, Denies flushing and Denies palpitations Hematologic/Lymphatic Hematologic/Lymphatic: Denies easy bruising Allergic/Immunologic Allergic/Immunologic: Denies urticaria, Denies throat swelling and Denies wheezing Patient History Social History Smoking Status: Former smoker Tobacco: How many years used: 5 second hand exposure: No alcohol intake: current substance use type: does not use Smoking Status: Former smoker tobacco type: cigarettes alcohol intake frequency: 0-2 drinks per day Alcohol type: wine Exam Narrative Exam Narrative: Const General:?cooperative, healthy appearing and comfortable [facility] Head:?normal to inspection Ears:?hearing grossly normal bilaterally Nose:?external nose normal Face and sinus:?normal facial exam and sinuses nontender Mouth:?oral mucosae normal Throat:?posterior oropharynx normal Eyes General:?appearance normal, both eyes and all related structures Neck Neck:?normal visual inspection and no lymphadenopathy noted Resp Effort & Inspection:?normal respiratory effort Auscultation:?clear to auscultation bilaterally Cardio Rate:?regular rate Rhythm:?regular rhythm Integumentary There is bruising to the inner left forearm, left inner upper arm. Mildly tender to palpation. There is full range of motion. Strength and sensation is intact. Patient is neurovascularly intact. Compartments are soft. No hematomas. Neuro General:?patient alert, patient awake and patient oriented x3 Initial Vital Signs Initial Vital Signs: Vital Signs Temperature 97.9 F 08/09/25 11:59 Pulse Rate 78 08/09/25 11:59 Respiratory Rate 18 08/09/25 11:59 Blood Pressure 136/62 08/09/25 11:59 Pulse Oximetry 99 08/09/25 11:59 Oxygen Delivery Method Room Air 08/09/25 11:59 MDM - Skin/Abscess/Foreign Bdy Lab Data 08/09/25 14:40 08/09/25 14:40 Labs: Lab Results 08/09/25 Range/Units 14:40 WBC 6.8 (4.5-11.0) X10^3/uL RBC 4.65 (4.0-5.2) X10^6/uL Hgb 14.1 (12.0-16.0) g/dL Hct 41.8 (36-46) % MCV 89.8 (80-100) fL MCH 30.4 (26-34) PG MCHC 33.8 (30-36) % RDW 14.6 (11.6-14.8) % Plt Count 231 (150-400) X10^3/uL Neut % (Auto) 61.5 (50-75) % Lymph % (Auto) 29.4 (25-40) % [place] % (Auto) 6.8 (3-14) % Eos % (Auto) 1.4 L (2-4) % Baso % (Auto) 0.9 (0-2) % Neut # (Auto) 4200 (5777-6528) /uL Lymph # (Auto) 2000 (2706-8357) /uL [place] # (Auto) 500 (0-900) /uL Eos # (Auto) 100 (0-450) /uL Baso # (Auto) 100 (0-100) /uL PT 10.2 (9.4-12.5) SECONDS INR 0.9 (0.9-1.3) APTT 29 (25.1-36.5) SECONDS Sodium 139 (137-145) mmol/L Potassium 4.1 (3.4-5.1) mmol/L Chloride 106 (98-107) mmol/L Carbon Dioxide 27 (22-32) mmol/L BUN 17 (7-17) mg/dL Creatinine 0.89 (0.52-1.04) mg/dL Estimated GFR > 60 (>60) mL/min BUN/Creatinine Ratio 19.1 (6-22) Glucose 97 (70-99) mg/dL Calcium 9.7 (8.4-10.2) mg/dL Total Bilirubin 1.1 (0.2-1.3) mg/dL AST 31 (14-36) IU/L ALT 17 (<35) IU/L Alkaline Phosphatase 66 (38-126) U/L Total Protein 7.2 (6.3-8.2) g/dL Albumin 4.4 (3.5-5.0) g/dL Globulin 2.8 (1.7-4.1) g/dL Albumin/Globulin Ratio 1.6 (1.0-2.8) MDM Narrative Medical decision making narrative: 75-year-old female presents to the ED with spontaneous, atraumatic bruising of the left arm. Ultrasound of the left upper extremity was obtained. No findings of upper extremity DVT seen on ultrasound. Patient's symptoms most consistent with a varicose vein rupture. Reassuring to note that there is no growing hematomas. Recommend supportive care with NSAIDs, elevation. Recommend follow-up with PCP as soon as possible. ED return precautions discussed with patient. Patient verbalized understanding. Medical records reviewed: Yes Discharge Plan Departure Patient Disposition: Home Clinical Impression: Rupture of vein Instructions: DI for Varicose Veins Activity Restrictions/Additional Instructions: You were evaluated in the emergency room today for pain and bruising to your left arm. The ultrasound did not show any blood clots / DVTs. Your symptoms are most consistent with a small venous bleed from varicose veins. These can occur spontaneously and can cause pain. Treatment for this is pain control with Tylenol /ibuprofen, elevating the arm. please follow-up with your PCP for further evaluation. Return to the ED if you have worsening symptoms. Prescriptions: No Action phenazopyridine [Pyridium] 200 mg tablet 200 mg PO TID 0 Days Qty: 6 0RF Cranberry Supplement PO Vitamin C PO multivitamin [Multiple Vitamins] 1 EACH tablet 1 tab PO QDAY Qty: 0 cholecalciferol (vitamin D3) [Vitamin D3] 2,000 UNIT capsule 2,000 unit PO Qty: 0 methylsulfonylmethane [MSM] 1,000 mg capsule 1,000 mg PO BID lutein PO Saccharomyces boulardii [Daily Probiotic (S. boulardii)] PO biotin 5,000 mcg tablet,chewable PO estradiol 0.01 % (0.1 mg/gram) cream 1 g vaginal 2XW PRN (Reason: vulvovaginal irritation) Qty: 42.5 0RF Referrals: Kimberlee Chavez DO [Primary Care Provider, Medical] Stand Alone Forms: Patient Portal/API
== END 2025-08-09 15:56 | disposition home or self-care (01) ==
PROVIDERS: Emergency Provider Student in an Organized Health Care Education/Training Program; PCP Family Medicine
DX: R58 Hemorrhage, not elsewhere classified (principal); S40.022A Contusion of left upper arm, initial encounter
CPT/HCPCS: 36415; 80053; 85025; 85610; 85730; 93971; 99284